=== PATIENT | male | born 1985 | race African-American/Black ===

== ENCOUNTER 2018-12-28 00:39 | Emergency (ER) | payer OTHER ==
[~2018-12-28] VITALS: Ht 188 cm; Wt 101.2 kg
[2018-12-28 00:40] VITALS: BP 167/88
--- NOTE | 2018-12-28 01:07 | NUR ---
PT BACK FROM XRAY
[2018-12-28] MEDS ORDERED: ACETAMINOPHEN 500 MG TABLET ONE (01:30)
--- NOTE | 2018-12-28 01:35 | NUR ---
Patient/Caregiver given discharge instructions and they have confirmed that they understand the instructions. Patient ambulatory with steady gait.
== END 2018-12-28 01:37 | disposition home or self-care (01) ==
LOC: ED 01:26
DX: S56.212A Strain of other flexor muscle, fascia and tendon at forearm level, left arm, initial encounter (principal); S56.012A Strain of flexor muscle, fascia and tendon of left thumb at forearm level, initial encounter; S56.112A Strain of flexor muscle, fascia and tendon of left index finger at forearm level, initial encounter; S56.114A Strain of flexor muscle, fascia and tendon of left middle finger at forearm level, initial encounter; S56.116A Strain of flexor muscle, fascia and tendon of left ring finger at forearm level, initial encounter; S56.512A Strain of other extensor muscle, fascia and tendon at forearm level, left arm, initial encounter; S56.312A Strain of extensor or abductor muscles, fascia and tendons of left thumb at forearm level, initial encounter; S56.412A Strain of extensor muscle, fascia and tendon of left index finger at forearm level, initial encounter; S56.414A Strain of extensor muscle, fascia and tendon of left middle finger at forearm level, initial encounter; S56.416A Strain of extensor muscle, fascia and tendon of left ring finger at forearm level, initial encounter; X58.XXXA Exposure to other specified factors, initial encounter; Y93.89 Activity, other specified; Y92.410 Unspecified street and highway as the place of occurrence of the external cause; Y99.8 Other external cause status
CPT/HCPCS: 99283